=== PATIENT | female | born 1950 | race Caucasian/White ===

== ENCOUNTER 2021-12-14 06:41 | Day surgery (SDC) | payer MEDICARE, MEDICAID ==
[~2021-12-14] VITALS: Ht 172.7 cm; Wt 93.1 kg
[2021-12-14] MEDS ORDERED: fentaNYL/PF 50MCG/1 ML 2ML syringe ONE (06:59)
[2021-12-14 07:00] VITALS: BP 193/98
[2021-12-14] MEDS ORDERED: diphenhydrAMINE 50 mg/ml inj ONE (07:00)
[2021-12-14] MEDS ORDERED: MIDAZolam 1 MG/ML 5ML VIAL ONE (07:00)
[2021-12-14] MEDS ORDERED: MIRT-116 PO (07:14)
[2021-12-14] MEDS ORDERED: GABA-530 PO ×2 (07:15→07:18)
[2021-12-14] MEDS ORDERED: SERT-434 PO (07:16)
[2021-12-14] MEDS ORDERED: MECL-159 PO (07:16)
[2021-12-14] MEDS ORDERED: FAMO40TA73 PO (07:17)
[2021-12-14] MEDS ORDERED: DONE-46 PO (07:18)
[2021-12-14] MEDS ORDERED: CYCL1DRO OP (07:19)
[2021-12-14] MEDS ORDERED: ROPI0.5T4 PO (07:20)
[2021-12-14] MEDS ORDERED: ONDA4TAB12 PO (07:21)
[2021-12-14] MEDS ORDERED: METO-395 PO (07:22)
[2021-12-14] MEDS ORDERED: SEVE800T8 PO (07:23)
[2021-12-14] MEDS ORDERED: FOLI0.8T19 PO (07:24)
[2021-12-14] MEDS ORDERED: ACET-1025 PO (07:24)
[2021-12-14] MEDS ORDERED: LIDOcaine Viscous 15ml cup ONE (07:55)
[2021-12-14 08:30] VITALS: BP 175/66
[2021-12-14 08:40] VITALS: BP 177/56
[2021-12-14 08:50] VITALS: BP 174/66
[2021-12-14 09:00] VITALS: BP 180/73
[2021-12-14 09:10] VITALS: BP 170/61
== END 2021-12-14 09:50 | disposition home or self-care (01) ==
LOC: GI LAB 06:41
PROVIDERS: ATTEND Internal Medicine Gastroenterology
DX: R10.13 Epigastric pain (principal); K21.00 Gastro-esophageal reflux disease with esophagitis, without bleeding; K29.70 Gastritis, unspecified, without bleeding; E11.22 Type 2 diabetes mellitus with diabetic chronic kidney disease; N18.6 End stage renal disease; Z99.2 Dependence on renal dialysis; Z86.73 Personal history of transient ischemic attack (TIA), and cerebral infarction without residual deficits
CPT/HCPCS: 43239; J1200; J2250; J3010; J7030; Z7512; 88305; 99152; A4620

== ENCOUNTER 2021-12-21 12:15 | Day surgery (SDC) | payer MEDICARE, MEDICAID ==
[~2021-12-21] VITALS: Ht 172.7 cm; Wt 93.2 kg
[~2021-12-21 12:15] MED LIST: ACET-1025 PO; CYCL1DRO OP; DONE-46 PO; FAMO40TA73 PO; FOLI0.8T19 PO; GABA-530 PO; MECL-159 PO; METO-395 PO; MIRT-116 PO; ONDA4TAB12 PO; ROPI0.5T4 PO; SERT-434 PO; SEVE800T8 PO
[2021-12-21 12:35] VITALS: BP 195/54
[2021-12-21] MEDS ORDERED: MIDAZolam 1 MG/ML 5ML VIAL ONE (12:37)
[2021-12-21] MEDS ORDERED: diphenhydrAMINE 50 mg/ml inj ONE (12:37)
[2021-12-21] MEDS ORDERED: fentaNYL/PF 50MCG/1 ML 2ML syringe ONE (12:37)
[2021-12-21 14:20] VITALS: BP 143/92
[2021-12-21 14:30] VITALS: BP 130/100
[2021-12-21 14:40] VITALS: BP 134/78
[2021-12-21 14:50] VITALS: BP 167/94
== END 2021-12-21 15:15 | disposition home or self-care (01) ==
LOC: GI LAB 12:15
PROVIDERS: ATTEND Internal Medicine Gastroenterology
DX: K52.9 Noninfective gastroenteritis and colitis, unspecified (principal); D12.3 Benign neoplasm of transverse colon; D12.2 Benign neoplasm of ascending colon; D12.4 Benign neoplasm of descending colon; K57.30 Diverticulosis of large intestine without perforation or abscess without bleeding; J44.9 Chronic obstructive pulmonary disease, unspecified; M19.90 Unspecified osteoarthritis, unspecified site; Z88.8 Allergy status to other drugs, medicaments and biological substances; Z79.899 Other long term (current) drug therapy
CPT/HCPCS: 45385; 99153; C1773; G0500; J2250; J3010; J7030; Z7512; 45380; 99152; A4620; J1200

== ENCOUNTER 2022-10-19 13:43 | Outpatient (CLI) | payer MEDICARE, MEDICAID | END 2022-10-19 23:59 | disposition home or self-care (01) | LOC: RAD 13:43 | PROVIDERS: ATTEND Otolaryngology | DX: R13.14 Dysphagia, pharyngoesophageal phase (principal); R13.10 Dysphagia, unspecified; K21.9 Gastro-esophageal reflux disease without esophagitis | CPT/HCPCS: 74220; 74230 ==